=== PATIENT | female | born 1935 | race Native Hawaiian/Other Pacific Islander ===

== ENCOUNTER 2016-11-30 09:31 | Outpatient (CLI) | payer OTHER | END 2016-11-30 11:00 | disposition home or self-care (01) | LOC: MAMMO 09:31 | DX: Z12.31 Encounter for screening mammogram for malignant neoplasm of breast (principal) | CPT/HCPCS: G0202-TC ==

== ENCOUNTER 2016-12-09 10:05 | Outpatient (CLI) | payer OTHER | END 2016-12-09 12:10 | disposition home or self-care (01) | LOC: MAMMO 10:05 | DX: R92.8 Other abnormal and inconclusive findings on diagnostic imaging of breast (principal) ==

== ENCOUNTER 2018-06-21 08:14 | Outpatient (CLI) | payer OTHER | END 2018-06-21 23:11 | disposition home or self-care (01) | LOC: RESP 08:14 | DX: R06.02 Shortness of breath (principal) ==

== ENCOUNTER 2019-06-04 09:50 | Outpatient (CLI) | payer OTHER | END 2019-06-04 19:12 | disposition home or self-care (01) | LOC: RAD 09:50 → RESP 09:50 | DX: J44.9 Chronic obstructive pulmonary disease, unspecified (principal) ==

== ENCOUNTER 2021-01-14 10:03 | Outpatient (CLI) | payer OTHER | END 2021-01-14 20:05 | disposition home or self-care (01) | LOC: RESP 10:03 | PROVIDERS: ATTEND Internal Medicine Sleep Medicine | DX: Z92.29 Personal history of other drug therapy (principal); J44.9 Chronic obstructive pulmonary disease, unspecified ==